=== PATIENT | male | born 1975 | race Caucasian/White ===

== ENCOUNTER 2017-04-01 05:31 | Emergency (ER) | payer SELFPAY ==
[~2017-04-01] VITALS: Ht 165.1 cm; Wt 72.6 kg
[~2017-04-01 05:31] MED LIST: FLEXERIL10 MG PO; IBU800 MG PO
[2017-04-01 05:47] VITALS: BP 130/76
--- NOTE | 2017-04-01 05:53 | ED GI/GU/ABDOMINAL COMPLAINT ---
History of Present Illness General Chief Complaint: Nausea, Vomiting, Diarrhea Stated Complaint: "MY DIAPHRAGM HURTS" C/O FEVER,CHILLS X'S 1 WK Source: patient, old records Exam Limitations: no limitations Vital Signs & Intake/Output Vital Signs & Intake/Output Vital Signs Date Time Temp Pulse Resp B/P B/P Pulse O2 O2 Flow FiO2 Mean Ox Delivery Rate 04/01 0634 101.0 04/01 0634 101.0 04/01 0634 Room Air 04/01 0604 102.3 04/01 0547 102.3 95 18 130/76 98 Room Air Allergies Coded Allergies: NO KNOWN ALLERGIES (05/05/13) Triage Note: PT TO TRIAGE C/O FEVER, CHILLS, BODY ACHES, NONPRODUCTIVE COUGH AND DIARRHEA X 1 WEEK. TEMP 102.3. MD RUIZ AWARE AND AT BEDSIDE. Triage Nurses Notes Reviewed? yes HPI: Patient presents with a one-week history of fevers, chills, myalgias, a cough which is sometimes productive and sometimes productive as well as nausea and vomiting. Patient states thatgetting a sharp stabbing pain in his diaphragm when he coughs. There is no pain when he is not coughing. No radiation. At its worst the pain is 6 out of 10. But what he is not coughing it is 0 out of 10. Past History Travel History Traveled to [place] past 21 day No Medical History Any Pertinent Medical History? see below for history Neurological: NONE EENT: HEARING IMPAIRED Cardiovascular: NONE Respiratory: NONE Gastrointestinal: NONE Hepatic: NONE Renal: NONE Musculoskeletal: NONE Psychiatric: NONE Endocrine: NONE Blood Disorders: NONE Cancer(s): NONE FORESTRY LABORER/Reproductive: NONE Surgical History Surgical History: non-contributory Psychosocial History What is your primary language Angolan Tobacco Use: Current Not Daily Daily Tobacco Use Amount/Type: =< 4 Cigarettes daily ETOH Use: occasional use Illicit Drug Use: denies illicit drug use Family History Hx Contributory? No Review of Systems Review of Systems Constitutional: Reports: see HPI, chills, fever. EENTM: Reports: no symptoms. Respiratory: Reports: see HPI, cough. Cardiovascular: Reports: no symptoms. GI: Reports: no symptoms. Genitourinary: Reports: no symptoms. Musculoskeletal: Reports: no symptoms. Skin: Reports: no symptoms. Neurological/Psychological: Reports: no symptoms. Hematologic/Endocrine: Reports: no symptoms. Immunologic/Allergic: Reports: no symptoms. All Other Systems: Reviewed and Negative Physical Exam Physical Exam General Appearance: well developed/nourished, alert, awake, moderate distress Head: atraumatic, normal appearance Eyes: Bilateral: PERRL, EOMI. Ears, Nose, Throat, Mouth: DRY MUCOSA, NO PHARYNGEAL OR TONSILLAR ERYTHMEA OR EXUDATES Neck: normal inspection, supple, full range of motion Respiratory: normal breath sounds, chest non-tender, no respiratory distress, lungs clear Cardiovascular: regular rate/rhythm, edema Gastrointestinal: normal bowel sounds, soft, non-tender, no organomegaly Back: normal inspection, normal range of motion Extremities: normal range of motion Neurologic/Psych: no motor/sensory deficits, awake, alert, oriented x 3, normal gait Skin: intact, normal color, warm/dry Core Measures ACS in differential dx? No Sepsis Present: No Sepsis Focused Exam Completed? No Progress Differential Diagnosis: orchitis, ureterolithiasis, UTI/pyelo Plan of Care: Orders Procedure Date/time Status RAPID VIRAL INFLUENZA A 04/01 05 Complete URINALYSIS 04/01 0549 Active LACTIC ACID 04/01 0549 Complete COMPREHENSIVE METABOLIC PANEL 04/01 0549 Complete CBC WITHOUT DIFFERENTIAL 04/01 0549 Complete Current Medications Sig/Halina Start time Last Medication Dose Stop Time Status Admin Sodium Chloride 1,000 ML BOLUS ONE 04/01 0600 AC 04/01 (Normal Saline 0.9%) 04/01 0659 0604 Laboratory Tests 04/01/17 0600: Anion Gap 15, Estimated GFR > 60, BUN/Creatinine Ratio 7.3, Glucose 118 H, Lactic Acid 1.6, Calcium 9.0, Total Bilirubin 0.7, AST 29, ALT 42, Alkaline Phosphatase 86, Total Protein 6.9, Albumin 4.2, Globulin 2.7, Albumin/Globulin Ratio 1.6, CBC w Diff NO MAN DIFF REQ, RBC 4.42 L, MCV 86.7, MCH 30.4, RDW 13.2 , MPV 7.4, Gran % 86.0 H, Lymphocytes % 3.5 L, Monocytes % 8.5, Eosinophils % 2.0, Basophils % 0, Absolute Granulocytes 4.9, Absolute Lymphocytes 0.2 L, Absolute Monocytes 0.5, Absolute Eosinophils 0.1, Absolute Basophils 0, PUBS MCHC 35.1 Microbiology 01/16 0602 NASOPHARYN: Influenza Virus A & B Rapid Smear - COMP Diagnostic Imaging: Viewed by Me: Radiology Read. Discussed w/RAD: Radiology Read. CXR Impression: PATIENT: STEPHANIE MORRIS PRESENT AGE: 41 PATIENT ACCOUNT NO: [id number] : 77 LOCATION: [facility] ORDERING PHYSICIAN: Fadi Ruiz MD SERVICE DATE: 04/01/17 EXAM TYPE: RAD - XRY-CHEST XRAY, TWO VIEWS EXAMINATION: XR CHEST CLINICAL INFORMATION: Productive cough and fever COMPARISON: None TECHNIQUE: 2 views of the chest were obtained. FINDINGS: The lungs are well expanded. There is no focal consolidation, edema, or effusion. No pneumothorax. The cardiomediastinal silhouette is within normal limits. No acute osseous abnormality. IMPRESSION: No acute pulmonary findings. DICTATED BY: Emerson Shen MD DATE/TIME DICTATED:04/01/17604 PATIENT OMBUDSPERSON:YESENIA DATE/TIME TRANSCRIBED:04/01/17604 CONFIDENTIAL, DO NOT COPY WITHOUT APPROPRIATE AUTHORIZATION. <Electronically signed in Other Vendor System> SIGNED BY: Emerson Shen MD 04/01/17607 Initial ED EKG: none Departure Departure Disposition: HOME OR SELF CARE Condition: Stable Clinical Impression Primary Impression: Viral syndrome Referrals: Patient Has No Primary Care Dr (PCP/Family) Additional Instructions: take motrin as needed for youe fever drink plenty of fluids take tessalon as needed for your cough return if symptoms worsen or for any concerns Departure Forms: Customer Survey General Discharge Information Prescriptions: Current Visit Scripts Benzonatate (Tessalon Perle) 1 CAP PO TID PRN COUGH #30 CAP
--- NOTE | 2017-04-01 06:08 | RADIOLOGY REPORT ---
EXAMINATION: XR CHEST CLINICAL INFORMATION: Productive cough and fever COMPARISON: None TECHNIQUE: 2 views of the chest were obtained. FINDINGS: The lungs are well expanded. There is no focal consolidation, edema, or effusion. No pneumothorax. The cardiomediastinal silhouette is within normal limits. No acute osseous abnormality. IMPRESSION: No acute pulmonary findings.
[2017-04-01 06:22] LABS: ABSOLUTE BASOPHIL COUNT 0 /CUMM (0.0-0.2); ABSOLUTE EOSINOPHIL COUNT 0.1 /CUMM (0.0-0.7); ABSOLUTE GRANULOCYTE CT 4.9 /CUMM (1.4-6.5); ABSOLUTE LYMPH COUNT 0.2 /CUMM (1.2-3.4); ABSOLUTE MONOCYTE COUNT 0.5 /CUMM (0.10-0.60); BASOPHIL % 0 % (0.0-2.0); HEMATOCRIT 38.3 % (42-52); MEAN CORPUSCULAR HGB 30.4 PG (27.0-31.0); MEAN CORPUSCULAR HGB CONC 35.1 G/DL (33.0-37.0); MEAN CORPUSCULAR VOLUME 86.7 FL (80.0-94.0); MEAN PLATELET VOLUME 7.4 FL (7.4-10.4); RBC DISTRIBUTION WIDTH 13.2 % (11.5-14.5); RED BLOOD CELL CT 4.42 /CUMM (4.70-6.10); WHITE BLOOD CELL COUNT 5.7 /CUMM (4.8-10.8)
[2017-04-01 06:33] LABS: PLATELET COUNT 191 /CUMM (130-400)
[2017-04-01] MEDS ORDERED: TESSALON PERLE100 M1 PO (06:38)
== END 2017-04-01 06:44 ==
LOC: ERH 05:31
PROVIDERS: Emergency Medicine
DX: B34.9 Viral infection, unspecified (principal); R05 Cough; R11.2 Nausea with vomiting, unspecified
CPT/HCPCS: 71046; 87804; 87804-59; 96361; 96374; J2405